=== PATIENT | female | born 1990 | race Caucasian/White ===

== ENCOUNTER 2020-03-07 19:34 | Emergency (ER) | payer MEDICAID, SELFPAY ==
[2020-03-07 19:36] VITALS: BP 108/66; PULSE 72; RESP 18; TEMP 36.7; O2SAT 100; BMI 23.3
--- NOTE | 2020-03-07 20:13 | ED.DENTAL ---
HPI - Dental/Oral General Chief complaint: Dental/Oral Stated complaint: DENTAL PAIN Time Seen by Provider: 03/07/20 20:09 History of Present Illness HPI Narrative: patient complains of pain in right lower molar for 3 days after a filling fell out and pain in all left lower molar for 1-2 weeks that has been slowly worsening, she denies any difficulty breathing or swallowing no fever She tried to make appointment with the dentist but could not get a reasonable appointment Related Data Previous Rx's Medication Instructions Recorded amoxicillin 500 mg PO TID 7 Days #21 cap 03/07/20 amoxicillin 500 mg PO TID 7 Days #21 cap 03/07/20 ibuprofen 600 mg PO Q6H PRN #20 tab 03/07/20 ibuprofen 600 mg PO Q6H PRN #20 tab 03/07/20 oxycodone-acetaminophen [Percocet] 1 - 2 tab PO Q4-6H PRN #14 tab 03/07/20 oxycodone-acetaminophen [Percocet] 1 - 2 tab PO Q4-6H PRN #14 tab 03/07/20 Allergies Allergy/AdvReac Type Severity Reaction Status Date / Time No Known Allergies Allergy Unverified 02/14/20 16:06 [No Known Allergies*] Review of Systems Review of Systems: no fever no chills no cough no chest pain no shortness of breath no difficulty swallowing no rash PMF Past Medical History [facility] Narrative: no relevant medical or social history Source: nursing notes reviewed Social History Social History Smoking Status: Unknown if ever smoked Use of substances other than those prescribed or required for medical reasons: No Advance Directives: No Advance Directives Information Provided: Yes Physical Exam Vital Signs and I&O and Narrative: Vital Signs and I&O: Vital Signs Temp 98.0 F 03/07/20 19:36 Pulse 72 03/07/20 19:36 Resp 18 03/07/20 19:36 BP 108/66 03/07/20 19:36 Pulse Ox 100 03/07/20 19:36 Intake & Output 03/07/20 03/07/20 03/08/20 06:59 18:59 06:59 Weight 65.771 kg Body Mass Index 23.3 general appearance A&O x3, no acute distress Facial exam the skin of the face is normal, there is no swelling there is full range of motion of the mandible Intraoral exam, no trismus, no drooling, there is tenderness and obvious dental decay of right side and left side molars there are 2 decayed teeth, there is no impairment of breathing or swallowing there is no swelling under the tongue, there is no gum swelling no gum obsess The pharynx is clear The neck is supple Respiratory no respiratory distress Extremities for range of motion x4 Skin no rashes Neuro A&O x3 Discharge Plan Discharge Clinical Impression: Dental caries Patient Disposition: Home, Self-Care Additional Instructions: follow with dentist Return any concerns Prescriptions: New amoxicillin 500 mg capsule 500 mg PO TID 7 Days Qty: 21 RF: 0 ibuprofen 600 mg tablet 600 mg PO Q6H PRN (Reason: pain) Qty: 20 RF: 0 oxycodone-acetaminophen [Percocet] 5-325 mg tablet 1 - 2 tab PO Q4-6H PRN (Reason: pain) Qty: 14 RF: 0 amoxicillin 500 mg capsule 500 mg PO TID 7 Days Qty: 21 RF: 0 ibuprofen 600 mg tablet 600 mg PO Q6H PRN (Reason: pain) Qty: 20 RF: 0 oxycodone-acetaminophen [Percocet] 5-325 mg tablet 1 - 2 tab PO Q4-6H PRN (Reason: pain) Qty: 14 RF: 0 Interventions: ED Discharge Assessment Last Done: 03/07/20 20:49 Discharge Date/Time: 03/07/20 20:40
== END 2020-03-07 20:40 | disposition home or self-care (01) ==
PROVIDERS: Emergency Provider Emergency Medicine
DX: K02.9 Dental caries, unspecified (principal); K08.89 Other specified disorders of teeth and supporting structures
CPT/HCPCS: 99283

== ENCOUNTER 2021-02-26 09:24 | Emergency (ER) | payer MEDICAID, SELFPAY ==
--- NOTE | ~2021-02-26 | CT_ITS ---
EXAMINATION: CT ABDOMEN AND PELVIS WITHOUT CONTRAST CLINICAL INFORMATION: Left flank pain. Rule out kidney stone. COMPARISON: Previous CT of the abdomen and pelvis December 2019 TECHNIQUE: Multidetector volumetric imaging was performed from the superior aspect of the liver through the pubic symphysis. Sagittal and coronal reformatted images were obtained on the technologist's workstation. This CT examination was performed using dose optimization techniques as appropriate, variously including the following: *Automated exposure control *Adjustment of mA and/or kV according to patient size (this includes techniques or standardized protocols for targeted exams where dose is matched to indication/reason for exam; i.e. extremities or head) *Use of iterative reconstruction technique DLP: 470 mGy-cm FINDINGS: LUNG BASES: The visualized lung bases are unremarkable. LIVER, GALLBLADDER, AND BILIARY TREE: The liver is normal in size, shape, and attenuation. No focal hepatic lesion or biliary ductal dilatation is present. The gallbladder is unremarkable with no evidence of radiopaque gallstones, gallbladder wall thickening, or obvious pericholecystic inflammatory changes. PANCREAS: Unremarkable. SPLEEN: Unremarkable. ADRENAL GLANDS: Unremarkable. KIDNEYS AND URETERS: The kidneys are normal in size, shape, and attenuation. No hydronephrosis, hydroureter, or calculi seen. No perinephric stranding. BLADDER: Unremarkable. GASTROINTESTINAL TRACT: The small and large bowel are unremarkable. The appendix is unremarkable. ABDOMINAL WALL: There is a small umbilical hernia containing fat. LYMPH NODES: Normal. VASCULAR: Unremarkable. PELVIC VISCERA: Unremarkable. OSSEOUS STRUCTURES: Unremarkable. CT/CT abdomen pelvis wo con IMPRESSION: Unremarkable exam. No stone seen.
[2021-02-26 09:54] VITALS: BP 103/53; PULSE 117; RESP 14; TEMP 36.8; O2SAT 100; BMI 24.0
[2021-02-26 10:53] LABS: UPreg QC Valid YES; Urine Pregnancy NEGATIVE (NEGATIVE)
--- NOTE | 2021-02-26 11:00 | ED_ITS ---
HPI - Abdominal Pain General Chief Complaint: Abdominal Pain Stated Complaint: abd pain, urinary problem Time Seen by Provider: 02/26/21 10:36 Source: patient Mode of arrival: ambulatory Limitations: no limitations History of Present Illness HPI narrative: 23-year-old female who presents emergency department for chiki luation of back abdominal pain x2 days. Patient states that the back pain started yesterday, she points to her left upper back in flank area when asked to localize the pain. She states the pain is a constant sharp pain which is 10/10. The pain came on gradually and got progressively worse. She has had associated nausea with small amounts of emesis, she has noted dysuria and urinary frequency. She states that she had a subjective fever yesterday as well as chills. Patient states she had similar discomfort in the past when she had a urinary tract infection. She denied chest pain, shortness of breath, dyspnea on exertion, change in bowel movements. Related Data Previous Rx's Medication Instructions Recorded amoxicillin 500 mg capsule 500 mg PO TID 7 Days #21 cap 03/07/20 amoxicillin 500 mg capsule 500 mg PO TID 7 Days #21 cap 03/07/20 ibuprofen 600 mg tablet 600 mg PO Q6H PRN #20 tab 03/07/20 ibuprofen 600 mg tablet 600 mg PO Q6H PRN #20 tab 03/07/20 oxycodone-acetaminophen 5 mg-325 1 - 2 tab PO Q4-6H PRN #14 tab 03/07/20 mg tablet (Percocet) oxycodone-acetaminophen 5 mg-325 1 - 2 tab PO Q4-6H PRN #14 tab 03/07/20 mg tablet (Percocet) cephalexin 500 mg capsule 500 mg PO TID 7 Days #21 cap 02/26/21 phenazopyridine 200 mg tablet 200 mg PO TID PRN 3 Days #9 tab 02/26/21 (Pyridium) Allergies Allergy/AdvReac Type Severity Reaction Status Date / Time No Known Allergies Allergy Unverified 02/14/20 16:06 [No Known Allergies*] Review of Systems Review of Systems Past medical history: None. Past surgical history: Herniorrhaphy at age 18. Yes all other systems are reviewed and are negative Physical Exam Vital Signs: Vital Signs: Last Vital Signs Temp 99.8 F 02/26/21 12:34 Pulse 113 H 02/26/21 12:34 Resp 16 02/26/21 12:34 BP 108/59 L 02/26/21 12:34 Pulse Ox 97 02/26/21 12:34 Body Mass Index 24.0 Const: Other: Pleasant, cooperative female patient who appears to be in moderate distress secondary to her pain, she is actively vomiting at the time of my interview. HENMT: Head: Yes normal to inspection, Yes normocephalic and Yes atraumatic Ears: external ears normal General nose exam: Normal external nose present Face and sinus: Yes normal facial exam Mouth: Normal oral and palatal mucosa present Throat: Yes posterior oropharynx normal Eyes: General: appearance normal, both eyes and all related structures Pupils: Equal, round and reactive pupils present Neck: Neck: Yes normal visual inspection, Yes no lymphadenopathy, Yes trachea midline and Yes supple Chest: Chest palpation & inspection: normal inspection of the chest and normal palpation of entire chest wall Resp: Effort & Inspection: normal respiratory effort and able to speak in complete sentences Auscultation: clear to auscultation bilaterally Cardio: Rate: regular rate Rhythm: regular rhythm Heart sounds: S1 normal heart sound present, S2 normal heart sound present and no murmurs GI: Inspection: Yes normal to inspection Palpation (GI): Soft to palpation, Tenderness to palpation present (GI) in the LUQ (Moderate) and no guarding Auscultation: normal bowel sounds : General: Yes CVA tenderness on the left Back/Spine/Pelvis: Back: CVA tenderness Skin: General skin exam: no rashes or lesions noted Neuro: Cranial nerves: Yes CN's II-XII intact bilaterally and Yes Equal, round and reactive pupils present Cognition (Neuro): normal cognition Motor exam (neuro): 5/5 motor strength present throughout Extrem: General: Yes normal to inspection Psych: Appearance: grossly normal Speech and movement: Normal speech and movement present Affect: normal affect Attitude: cooperative Thought process: Normal thought process present Thought content: Normal thought content present Course Course Course Narrative: 31-year-old female who presents emergency department for evaluation of left posterior chest and flank pain x2 days with subjective fever, chills frequency and dysuria. Patient's vital signs revealed tachycardia with a pulse of 117. The patient's exam did reveal left flank tenderness and left lower quadrant tenderness. Differential includes but is not limited to urinary tract infection, pyelonephritis, renal colic. I did order a CBC, CMP, urinalysis and urine . CT scan of the abdomen pelvis with IV contrast was also ordered. Patient's pain will be treated with Toradol 30 mg IV and her nausea will be treated with Zofran 4 mg IV. 1333: Patient did get relief of her pain with Toradol however the pain returned and she required morphine 4 mg IV. laboratory evaluation [place] [address], elevated glucose of 122. Urinalysis was positive for blood. Microscopic revealed 0-2 rbc's, 5 -9 WBCs 2 +squamous cells and 2+ bacteria. CT scan of the abdomen pelvis revealed no acute findings to explain the patient's left flank pain. Given the patient's presentation I am concerned that she may have a urinary tract infection as the cause of her symptoms. I did discuss this with the patient. Patient was given Keflex 500 mg orally and P yridium 200 mg orally. Patient was discharged home. MDM - Abdominal Pain Lab Data Result diagrams: 02/26/21 11:07 02/26/21 11:07 Labs: Lab Results 02/26/21 02/26/21 02/26/21 Range/Units 10:25 10:25 11:07 WBC 16.5 H (4.8-10.8) X10*3/uL RBC 4.25 (4.20-5.50) X10*6/uL Hgb 12.9 (12.0-16.0) g/dl Hct 38.2 (37-47) % MCV 89.9 (80-98) fL MCH 30.4 (27.0-33.0) pg MCHC 33.8 (31.0-35.0) g/dl RDW 12.1 (11.0-16.0) % Plt Count 207 (160-400) X10*3/uL MPV 10.1 (9.4-12.3) fL Immature Gran % (Auto) 0.5 H (0.0-0.4) % Neut % (Auto) 87.7 H (45-73) % Lymph % (Auto) 7.0 L (20-40) % [place] % (Auto) 4.7 (2-11) % Eos % (Auto) 0.0 (0-4) % Baso % (Auto) 0.1 (0-2) % Lymph # (Auto) 1.2 (1.2-4.9) X10*3/uL [place] # (Auto) 0.8 (0.1-1.2) X10*3/uL Eos # (Auto) 0.0 (0.0-0.4) X10*3/uL Baso # (Auto) 0.0 (0.0-0.2) X10*3/uL Abs Immat Gran (auto) 0.08 H (0.00-0.03) X10*3/uL Absolute Neuts (auto) 14.5 H (2.0-8.3) X10*3/uL Absolute Nucleated RBC 0.000 (0.0-0.012) X10*3/uL Nucleated RBC % (auto) 0.0 (0.0-0.2) /100WBC Sodium (135-145) mmol/L Potassium (3.3-5.1) mmol/L Chloride (96-108) mmol/L Carbon Dioxide (22-29) mmol/L Anion Gap (12-20) BUN (9-16) mg/dL Creatinine (0.5-1.4) mg/dL Estim Creat Clear Calc Estimated GFR Random Glucose (60-115) mg/dL Calcium (8.4-10.2) mg/dL Total Bilirubin (0.0-1.0) mg/dL AST (5-31) U/L ALT (0-31) U/L Alkaline Phosphatase (39-117) U/L Total Protein (6.5-8.0) g/dL Albumin (3.5-5.0) g/dL Lipase (8-78) U/L Urine Color YELLOW Urine Appearance HAZY Urine pH 6.0 (5.0-8.0) Ur Specific [place] 1.020 (1.005-1.025) Urine Protein TRACE (NEG-TRACE) MG/DL Urine Glucose (UA) NEG (NEG) MG/DL Urine Ketones 15 (NEG) MG/DL Urine Blood 3+ H (NEG) Urine Nitrite NEG (NEG) Ur Leukocyte Esterase NEG (NEG) Urine RBC 0-2 (0) /HPF Urine WBC 5-9 H (0-4) /HPF Ur Squamous Epith Cells 2+ /LPF Urine Bacteria 2+ /LPF Urine Mucus 1+ /LPF Urine Test NEGATIVE (NEGATIVE) 02/26/21 Range/Units 11:07 WBC (4.8-10.8) X10*3/uL RBC (4.20-5.50) X10*6/uL Hgb (12.0-16.0) g/dl Hct (37-47) % MCV (80-98) fL MCH (27.0-33.0) pg MCHC (31.0-35.0) g/dl RDW (11.0-16.0) % Plt Count (160-400) X10*3/uL MPV (9.4-12.3) fL Immature Gran % (Auto) (0.0-0.4) % Neut % (Auto) (45-73) % Lymph % (Auto) (20-40) % [place] % (Auto) (2-11) % Eos % (Auto) (0-4) % Baso % (Auto) (0-2) % Lymph # (Auto) (1.2-4.9) X10*3/uL [place] # (Auto) (0.1-1.2) X10*3/uL Eos # (Auto) (0.0-0.4) X10*3/uL Baso # (Auto) (0.0-0.2) X10*3/uL Abs Immat Gran (auto) (0.00-0.03) X10*3/uL Absolute Neuts (auto) (2.0-8.3) X10*3/uL Absolute Nucleated RBC (0.0-0.012) X10*3/uL Nucleated RBC % (auto) (0.0-0.2) /100WBC Sodium 138 (135-145) mmol/L Potassium 4.0 (3.3-5.1) mmol/L Chloride 106 (96-108) mmol/L Carbon Dioxide 22 (22-29) mmol/L Anion Gap 14 (12-20) BUN 8 L (9-16) mg/dL Creatinine 0.91 (0.5-1.4) mg/dL Estim Creat Clear Calc 85.3 Estimated GFR > 60 Random Glucose 122 H (60-115) mg/dL Calcium 9.2 (8.4-10.2) mg/dL Total Bilirubin 1.5 H (0.0-1.0) mg/dL AST 16 (5-31) U/L ALT 14 (0-31) U/L Alkaline Phosphatase 55 (39-117) U/L Total Protein 7.6 (6.5-8.0) g/dL Albumin 4.5 (3.5-5.0) g/dL Lipase 12 (8-78) U/L Urine Color Urine Appearance Urine pH (5.0-8.0) Ur Specific [place] (1.005-1.025) Urine Protein (NEG-TRACE) MG/DL Urine Glucose (UA) (NEG) MG/DL Urine Ketones (NEG) MG/DL Urine Blood (NEG) Urine Nitrite (NEG) Ur Leukocyte Esterase (NEG) Urine RBC (0) /HPF Urine WBC (0-4) /HPF Ur Squamous Epith Cells /LPF Urine Bacteria /LPF Urine Mucus /LPF Urine Test (NEGATIVE) Discharge Plan Discharge Clinical Impression: Acute left flank pain Urinary tract infection Qualifiers: Urinary tract infection type: site unspecified Hematuria presence: without hematuria Qualified Code(s): N39.0 - Urinary tract infection, site not specified Patient Disposition: Home, Self-Care Instructions: Urinary Tract Infection in Women (ED) Additional Instructions: Your blood work revealed an elevated white blood cell count, this is consistent with an infection. Your urine microscopic examination did reveal a few white blood cells and b acteria, The CT scan of your abdomen pelvis without IV contrast did not reveal a clear cause for her left flank pain. At this time, I want to treat you for possible urinary tract infection as the cause of your symptoms. He received Keflex 500 mg orally here in the emergency department. Take Keflex 500 mg 3 times a day for 7 days. For pain take Pyridium 200 mg pills, 1 pill 3 times a day as needed. Take ibuprofen 200 mg pills, 3 pills every 6 hours as needed for pain. Take Tylenol (acetaminophen) 500 mg pills, 2 pills every 4 to 6 hours as needed for pain. Follow-up with your doctor in 2 days. Please return to the emergency department if your symptoms get worse or if you develop any symptoms that are concerning to you. Prescriptions: New phenazopyridine [Pyridium] 200 mg tablet 200 mg PO TID PRN (Reason: Burning with urination) 3 Days Qty: 9 RF: 0 cephalexin 500 mg capsule 500 mg PO TID 7 Days Qty: 21 RF: 0 No Action amoxicillin 500 mg capsule 500 mg PO TID 7 Days Qty: 21 RF: 0 ibuprofen 600 mg tablet 600 mg PO Q6H PRN (Reason: pain) Qty: 20 RF: 0 oxycodone-acetaminophen [Percocet] 5-325 mg tablet 1 - 2 tab PO Q4-6H PRN (Reason: pain) Qty: 14 RF: 0 amoxicillin 500 mg capsule 500 mg PO TID 7 Days Qty: 21 RF: 0 ibuprofen 600 mg tablet 600 mg PO Q6H PRN (Reason: pain) Qty: 20 RF: 0 oxycodone-acetaminophen [Percocet] 5-325 mg tablet 1 - 2 tab PO Q4-6H PRN (Reason: pain) Qty: 14 RF: 0 PMFSH Social History Social History Patient Tobacco Use Status: Never used Tobacco Use of substances other than those prescribed or required for medical reasons: No Advance Directives: No
[2021-02-26 11:10] LABS: MANUAL DIFF FLAG NO
[2021-02-26 11:14] LABS: Basophils Percent Auto 0.1 % (0-2); Hematocrit 38.2 % (37-47); Hemoglobin 12.9 g/dl (12.0-16.0); Imm Gran Abs Auto 0.08 X10*3/uL (0.00-0.03); Imm Gran Pct Auto 0.5 % (0.0-0.4); Lymphocytes Absolute Auto 1.2 X10*3/uL (1.2-4.9); Mean Corpuscular HGB Conc 33.8 g/dl (31.0-35.0); Mean Corpuscular Hemoglobin 30.4 pg (27.0-33.0); Mean Corpuscular Volume 89.9 fL (80-98); Mean Platelet Volume 10.1 fL (9.4-12.3); Monocytes Absolute Auto 0.8 X10*3/uL (0.1-1.2); Monocytes Percent Auto 4.7 % (2-11); Neutrophils Absolute Auto 14.5 X10*3/uL (2.0-8.3); Neutrophils Percent Auto 87.7 % (45-73); Platelet Count 207 X10*3/uL (160-400); Red Blood Count 4.25 X10*6/uL (4.20-5.50); Red Cell Distribution Width 12.1 % (11.0-16.0); White Blood Count 16.5 X10*3/uL (4.8-10.8)
[2021-02-26] MEDS: Ketorolac Tromethamine 15 MG/ML VIAL 30 MG IVPUSH (11:20)
[2021-02-26] MEDS: 0.9 % Sodium Chloride 1,000 ML 999 ML IV (11:20)
[2021-02-26] MEDS: ondansetron HCL 4 MG/2 ML VIAL IVPUSH (11:20)
[2021-02-26 11:21] VITALS: TEMP 37.6
[2021-02-26 11:23] LABS: Appearance Urine HAZY; Color Urine YELLOW; Glucose Urine UA NEG (NEG); Leukocyte Esterase Urine NEG (NEG); Nitrite Urine NEG (NEG); UACC Culture Trigger NO; Urine Blood 3+ (NEG); Urine Ketones 15 MG/DL (NEG); Urine Protein TRACE MG/DL (NEG-TRACE)
[2021-02-26 11:31] LABS: Alanine Aminotransferase 14 U/L (0-31); Albumin Level 4.5 g/dL (3.5-5.0); Alkaline Phosphatase 55 U/L (39-117); Anion Gap 14 (12-20); Aspartate Amino Transferase 16 U/L (5-31); Bilirubin Total 1.5 mg/dL (0.0-1.0); Blood Urea Nitrogen 8 mg/dL (9-16); Calcium 9.2 mg/dL (8.4-10.2); Carbon Dioxide 22 mmol/L (22-29); Chloride 106 mmol/L (96-108); Creatinine Clr Calc Pharmacy 85.3; Estimated Glomerular Filt Rate > 60; Glucose Random 122 mg/dL (60-115); Lipase 12 U/L (8-78); Sodium 138 mmol/L (135-145); Total Protein 7.6 g/dL (6.5-8.0)
[2021-02-26 11:45] LABS: Bacteria Urine 2+ /LPF; RBC Urine 0-2 /HPF (0); Squamous Epithelial Cell Urine 2+ /LPF
[2021-02-26 11:46] LABS: Mucus Urine 1+ /LPF
[2021-02-26 11:51] VITALS: BP 112/57; PULSE 112; RESP 16; O2SAT 99
--- NOTE | 2021-02-26 11:58 | PC.NURSE ---
Pt reports low back pain and low abd pain and left rib pain since yesterday. States decreased pain level s/p pain meds given but pain persist at 12/06. Requested and given heat pack to low back and Dr Sandoval aware of pain level at this time
[2021-02-26] MEDS: Morphine Sulfate 4 MG/ML CARTRIDGE IVPUSH (12:08)
[2021-02-26 12:34] VITALS: BP 108/59; PULSE 113; RESP 16; TEMP 37.7; O2SAT 97
[2021-02-26] MEDS: cephALEXin 500 MG CAPSULE PO (14:00)
[2021-02-26] MEDS: Phenazopyridine HCL 200 MG TABLET PO (14:00)
== END 2021-02-26 14:05 | disposition home or self-care (01) ==
PROVIDERS: Emergency Provider Emergency Medicine Emergency Medical Services
DX: N39.0 Urinary tract infection, site not specified (principal); R10.9 Unspecified abdominal pain; M54.5 Low back pain; Z79.899 Other long term (current) drug therapy
CPT/HCPCS: 36415; 74176; 80053; 81001; 81025; 83690; 85025; 96361; 96374; 96375; 99284; J1885; J2270; J2405

== ENCOUNTER 2022-12-22 13:03 | Emergency (ER) | payer MEDICAID, SELFPAY ==
[2022-12-22 14:01] VITALS: BP 102/54; PULSE 62; RESP 16; TEMP 36.1; O2SAT 99; BMI 25.8
--- NOTE | 2022-12-22 14:08 | ED_ITS ---
HPI - Medical Clearance General Chief complaint: Medical Clearance Stated complaint: Wants to be checked b/c her son has a rash Time Seen by Provider: 12/22/22 13:57 Source: patient Mode of arrival: ambulatory Limitations: no limitations History of Present Illness HPI Narrative: 32 yo female presents to the ER for evaluation of a slightly painful cracked lesion on her lower lip that she noticed yesterday. She wanted evaluation for possible HSV because her 4 yo son was told at the multimedia engineer yesterday that his mouth sores were herpes. She denies any painful oral or lip lesions, blisters or bumps. complaint: other (cracked area on lower lip) Onset (ago): day(s) (1) Place: home Traumatic Symptoms: denies traumatic injury Associated Symptoms: denies other symptoms Treatments Prior to Arrival: none Related Information Previous Rx's Medication Instructions Recorded amoxicillin 500 mg capsule 500 mg PO TID 7 days #21 caps 03/07/20 amoxicillin 500 mg capsule 500 mg PO TID 7 days #21 caps 03/07/20 ibuprofen 600 mg tablet 600 mg PO Q6H PRN pain #20 tabs 03/07/20 ibuprofen 600 mg tablet 600 mg PO Q6H PRN pain #20 tabs 03/07/20 oxycodone-acetaminophen 5 mg-325 1 - 2 tab PO Q4-6H PRN pain #14 03/07/20 mg tablet (Percocet) tabs oxycodone-acetaminophen 5 mg-325 1 - 2 tab PO Q4-6H PRN pain #14 03/07/20 mg tablet (Percocet) tabs cephalexin 500 mg capsule 500 mg PO TID 7 days #21 caps 02/26/21 phenazopyridine 200 mg tablet 200 mg PO TID PRN Burning with 02/26/21 (Pyridium) urination 3 days #9 tabs Allergies Allergy/AdvReac Type Severity Reaction Status Date / Time No Known Allergies Allergy Unverified 12/22/22 14:04 [No Known Allergies*] Review of Systems Review of Systems: Yes all other systems are reviewed and are negative [facility] Social History Social History Patient Tobacco Use Status: Never used Tobacco Advance Directives: No Advance Directives Information Provided: No Physical Exam Vital Signs: Vital Signs: Last Vital Signs Temp 96.9 F 12/22/22 14:01 Pulse 62 12/22/22 14:01 Resp 16 12/22/22 14:01 BP 102/54 L 12/22/22 14:01 Pulse Ox 99 12/22/22 14:01 O2 Del Method Room Air 12/22/22 14:01 BMI result Body Mass Index 25.8 Appearance: Alert. Oriented X3. No acute distress. Head: normocephalic, atraumatic. Eyes: normal inspection ENT: Lips are normal to inspection, there is a small, <0.5cm linear crack in the right lower lip, no bleeding, no raised lesion or blister. Pharynx normal. No tonsillar swelling or exudate. Neck: Normal inspection. Neck supple. CVS: Normal heart rate and rhythm. Pulses normal. Respiratory: No respiratory distress. Breath sounds normal. Skin: Skin warm and dry. Normal skin color. Normal skin turgor. No rashes. Extremities: No lower extremity edema. No joint swelling. Neuro/psych: Oriented X 3. nonfocal. CN II-XII intact. Normal speech and cognition. Medical Decision Making Medical Decision Making MDM Narrative: 32 yo female presenting for evaluation of a lip lesion after her son was diagnosed with oral herpes. her lip lesion is a simple crack without blistering or vesicles. exam not c/w HSV. patient counseled. she is stable for d/c home. Differential Diagnosis Differential Diagnoses: The differential diagnosis associated with the presentation includes cheilosis, HSV, stomatitis, apthous ulcer Tests considered The following testing was considered but not selected: considered HSV swab Prescription Management I considered prescription management with: Antiviral Critical Care Time Critical Care Time Critical Care Time: No Discharge Plan Discharge Clinical Impression: Cheilosis Patient Disposition: Home, Self-Care Additional Instructions: Cheilosis, also known as angular cheilitis or megan?kwaku, is?an inflammatory condition that causes cracking, crusting, and scaling of the corners of the mouth It gets better on its own Use topical chapstick to the area Prescriptions: No Action amoxicillin 500 mg capsule 500 mg PO TID 7 Days Qty: 21 0RF ibuprofen 600 mg tablet 600 mg PO Q6H PRN (Reason: pain) Qty: 20 0RF oxycodone-acetaminophen [Percocet] 5-325 mg tablet 1 - 2 tab PO Q4-6H PRN (Reason: pain) Qty: 14 0RF Rx Instructions: this medication can cause drowsiness, no driving for 6 hours after taking amoxicillin 500 mg capsule 500 mg PO TID 7 Days Qty: 21 0RF ibuprofen 600 mg tablet 600 mg PO Q6H PRN (Reason: pain) Qty: 20 0RF oxycodone-acetaminophen [Percocet] 5-325 mg tablet 1 - 2 tab PO Q4-6H PRN (Reason: pain) Qty: 14 0RF Rx Instructions: narcotic common no driving for 6 hours after taking this medication phenazopyridine [Pyridium] 200 mg tablet 200 mg PO TID PRN (Reason: Burning with urination) 3 Days Qty: 9 0RF cephalexin 500 mg capsule 500 mg PO TID 7 Days Qty: 21 0RF Interventions: ED Discharge Assessment Last Done: 12/22/22 14:24 Discharge Date/Time: 12/22/22 14:24
== END 2022-12-22 14:24 | disposition home or self-care (01) ==
PROVIDERS: Emergency Provider Emergency Medicine
DX: K13.0 Diseases of lips (principal)
CPT/HCPCS: 99282

== ENCOUNTER 2023-12-08 14:55 | Outpatient (REF) | payer MEDICAID, SELFPAY ==
--- NOTE | ~2023-12-08 | US_ITS ---
EXAMINATION: US SOFT TISSUE HEAD/NECK CLINICAL INFORMATION: Patient with chronic mass sensation in her right side of neck. COMPARISON: None available. TECHNIQUE: Linear transducer grayscale and color Doppler examination of the right neck. FINDINGS: Targeted ultrasound images were obtained by the claim adjuster of the area of concern as indicated by the patient in the right neck and demonstrated no discrete mass or fluid collection. Incidental note is made of lymph nodes superior and inferior to this area of concern indicated by the patient in the right neck. The lymph nodes inferior to the area of interest in the right neck measure 1.6 x 0.4 x 1.1 cm and 1.4 x 0.4 x 1.2 cm. The lymph node superior to the area of concern indicated by the patient measures 1.6 x 0.4 x 1.1 cm. These lymph nodes appear atypical with borderline cortical thickening. Radiologist was not in attendance. Images were later provided for interpretation. US/US soft tiss head and/or neck IMPRESSION: 1. No discrete mass or fluid collection identified in the area of concern indicated by the patient in the right neck. 2. Incidental note is made of lymph nodes superior and inferior to this area of concern indicated by the patient in the right neck. The lymph nodes inferior to the area of interest in the right neck measure 1.6 x 0.4 x 1.1 cm and 1.4 x 0.4 x 1.2 cm. The lymph node superior to the area of concern indicated by the patient measures 1.6 x 0.4 x 1.1 cm. These lymph nodes appear atypical with borderline cortical thickening. 3. Additional imaging with CT scan with intravenous contrast could be considered for further evaluation based on the clinical assessment.
== END 2023-12-08 14:56 | disposition home or self-care (01) ==
LOC: HO.US 14:55
PROVIDERS: PCP Student in an Organized Health Care Education/Training Program; Visit Provider Student in an Organized Health Care Education/Training Program
DX: R22.1 Localized swelling, mass and lump, neck (principal)
CPT/HCPCS: 76536

== ENCOUNTER 2024-04-10 16:03 | Outpatient (REF) | payer MEDICAID, SELFPAY ==
[2024-04-10] MEDS: iohexoL 350 MG/ML 100 ML INFUS..BTL IV (16:55)
== END 2024-04-10 16:04 | disposition home or self-care (01) ==
LOC: HO.CT 16:03
PROVIDERS: PCP Student in an Organized Health Care Education/Training Program; Visit Provider Student in an Organized Health Care Education/Training Program
DX: R22.1 Localized swelling, mass and lump, neck (principal)
CPT/HCPCS: 70491; Q9967

== ENCOUNTER → 2024-04-10 16:05 | Outpatient (BNV) | payer MEDICAID, SELFPAY | PROVIDERS: PCP Student in an Organized Health Care Education/Training Program; Visit Provider Radiology Diagnostic Radiology | DX: R22.1 Localized swelling, mass and lump, neck (principal) | CPT/HCPCS: 70491 ==

== ENCOUNTER 2024-05-15 | Outpatient (REF) | payer MEDICAID, SELFPAY ==
--- NOTE | ~2024-05-15 | XR_ITS ---
EXAMINATION: XR RIBS, BILATERAL CLINICAL INFORMATION: Bilateral rib pain x2 days. COMPARISON: 01/23/2017 TECHNIQUE: 3 views of the bilateral ribs and a PA view of the chest. FINDINGS: Lungs are clear. No consolidation, pneumothorax, or pleural effusion. The cardiomediastinal silhouette and pulmonary vasculature are normal. Osseous structures are unremarkable. Ribs are intact. No fractures are identified. XR/XR ribs BI min 4V w CXR1V IMPRESSION: Normal chest radiographs. No rib fractures are identified. Electronically signed by: Asaf Noel MD 05/19/2024 10:51 PM ROSITA DILLON
== END 2024-05-15 00:01 | disposition home or self-care (01) ==
LOC: HO.HHCX
PROVIDERS: Visit Provider Family Medicine
DX: R07.81 Pleurodynia (principal); R30.0 Dysuria
CPT/HCPCS: 71111; 87086; 87088; 87186

== ENCOUNTER 2025-01-25 23:08 | Emergency (ER) | payer OTHER, MEDICAID, SELFPAY ==
[2025-01-25 23:12] VITALS: BP 112/52; PULSE 78; RESP 16; TEMP 36.1; O2SAT 98; BMI 24.8
[2025-01-26] VITALS: BP 118/60; PULSE 82; RESP 18; O2SAT 97
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
--- OUTSIDE RECORDS SUMMARY | 2025-01-26 00:21 | XMS_ITS | Encounter Summary ---
Author Organization [employer] Address [address] [place] [id number] Care Team Providers Care Family Living Educator Name Role Phone Riana Hester DO Primary Care Provider [phone] Malinda Shankar MD Primary Care Pro vider Encounter Details Date Type Department Care Team (Latest Contact Info) Description 12/23/2020 Abstract [facility] Dental, Provider, DDS Social History Tobacco Use Types Packs/Day Years Used Date Smoking Tobacco: Never Assessed Comments Unknown Sex and Gender Information Value Date Recorded Sex Assigned at Female 03/29/2022 10:15 AM EDT Legal Sex Female 10:15 AM EDT Gender Identity Female 03/29/2022 10:15 AM EDT Sexual Orientation Straight 03/29/2022 10 :15 AM EDT documented as of this encounter Plan of Treatment Not on file documented as of this encounter Visit Diagnoses Not on filedocumented in this encounter Care Teams Family Living Educator Relationship Specialty Start Date End Date Riana Hester DO [address] [place] [address] PCP - General Family Medicine 12/07/21 10/06/22 Malinda Shankar MD [address] [place] [address] PCP - General Internal Medicine 10/07/22 Iman Clayton NUT STEAMER [address] [facility] 3rd Floor [address] [place] [id number] Gastroenterology 11/03/23 documented as of this encounter
--- OUTSIDE RECORDS SUMMARY | 2025-01-26 00:22 | XMS_ITS | Encounter Summary ---
Author Organization [employer] Address [address] [place] [address] [address] [place] [address] Care Team Providers Care Mat Man Name Role Phone Malinda Shankar MD Primary Care Pro vider Reason for Visit * Reason Onset Date Comments returning call for appt with Dr. Rowell 08/22/19 Encounter Details Date Type Department Care Team ([facility] Contact Info) Description 08/21/2024 Telephone [facility] ADULT D[facility]AL [address] [place] [address] Jarrod Rowell, DDS [address] [place] [address] returning call for appt with Dr. Rowell Social History Tobacco Use Types Packs/Day Years Used Date Smoking Tobacco: Never Passive Smoke Exposure: Never Smokeless Tobacco: Never Alcohol Use Standard Drinks/Week Comments Yes 0 (1 standard drink = 0.6 oz pur e alcohol) social Depression Answer Date Recorded Patient Health Questionnaire-9 Score 0 10/28/2023 Patient Health Questionnaire-9 Score 0 10/28/2023 Last PHQ-9: Questionnaire Data Not on file 0 10/28/2023 Housing Stability Answer Date Recorded What is your housing situation today? I have nydia aguilar 10/28/[address] you li ve. Do you have problems with any of the following? None of the above 10/28/2023 Food Insecurity Answer Date Recorded Within the past 12 months, y ou worried that your food would run out before you got money to buy more: Never True 10/28/2023 Within the past 12 months,th e food you bought just didn't last and you didn't have enough money to get more: Never True Transportation Answer Date Recorded In the past 12 months, has l ack of transportation kept you from medical appts, meetings, work or from getting things needed for daily living? No 10/28/2023 Utilities Answer Date Recorded In the past 12 months, has t he electric, gas, oil or water company threatened to shut off services in your home? No 10/28/2023 Depression Answer Date Recorded Patient Health Questionnaire-2 Score 0 10/28/2023 Internet Access Answer Date Recorded Internet Access Q1 Yes 02/06/2024 Internet Access Q2 Not on file 02/06/2024 Comments Unknown Sex and Gender Information Value Date Recorded Sex Assigned at Female 03/29/2022 10:15 AM EDT Legal Sex Female 10:15 AM EDT Gender Identity Female 03/29/2022 10:15 AM EDT Sexual Orientation Straight 03/29/2022 10 :15 AM EDT documented as of this encounter Miscellaneous Notes * Telephone Encounter - Hannah Pratt - 08/21/2024 12:59 PM EDT Patient is returning call placed to schedule an appt on Tuesday with Dr. Rowell. She is heading intoan appt right now and may be not able to answer when office returns call however she states she is available on Tuesday to come in. Office can leave appt date and time on voicemail if she does not answer. documented in this encounter Plan of Treatment Not on file documented as of this encounter Visit Diagnoses Not on filedocumented in this encounter Additional Health Concerns Assessment Noted Time PHQ-9 Depression Total Score: 0 10/28/19 24 1:42 PM EDT documented as of this encounter Care Teams Mat Man Relationship Specialty Start Date End Date Malinda Shankar MD [address] [place] [id number] PCP - General Internal Medicine 10/07/22 Iman Clayton STRATEGY EXECUTION CONSULTANT [address] [facility] 3rd Floor [address] [place] [address] Gastroenterology 11/03/23 documented as of this encounter
--- OUTSIDE RECORDS SUMMARY | 2025-01-26 00:22 | XMS_ITS | Encounter Summary ---
Author Organization [employer] Address [address] [place] [address] [address] [place] [address] Care Team Providers Care Bottom Pounder Cement Shoes Name Role Phone Malinda Shankar MD Primary Care Pro vider Encounter Details Date Type Department Care Team ([facility] st Contact Info) Description 11/22/2022 Abstract [facility] ADULT DENTAL [address] [place] [address] Dayday Loredo, ELAYNE [address] [place] [address] Social History Tobacco Use Types Packs/Day Years Used Date Smoking Tobacco: Never Passive Smoke Exposure: Never Smokeless Tobacco: Never Alcohol Use Standard Drinks/Week Comments Yes 0 (1 standard drink = 0.6 oz pur e alcohol) social Depression Answer Date Recorded Patient Health Questionnaire-9 Score 7 10/12/2022 Depression Answer Date Recorded Patient Health Questionnaire-2 Score 1 10/12/2022 Comments Unknown Sex and Gender Information Value Date Recorded Sex Assigned at Female 03/29/2022 10:15 AM EDT Legal Sex Female 10:15 AM EDT Gender Identity Female 03/29/2022 10:15 AM EDT Sexual Orientation Straight 03/29/2022 10 :15 AM EDT COVID-19 Exposure Response Date Recorded In the last 10 days, have kinza agrawal been in contact with someone who was confirmed or suspected to have Coronavirus/COVID-19? No / Unsure 11/19/2022 2:46 PM EDT documented as of this encounter Plan of Treatment Not on file documented as of this encounter Visit Diagnoses Not on filedocumented in this encounter Additional Health Concerns Assessment Noted Time PHQ-9 Depression Total Score: 7 10/13/19 23 4:26 PM EDT documented as of this encounter Care Teams Bottom Pounder Cement Shoes Relationship Specialty Start Date End Date Malinda Shankar MD [address] [place] [address] PCP - General Internal Medicine 10/07/22 Iman Clayton CASING IN LINE FEEDER [address] [facility] 3rd Floor [address] [place] [address] Gastroenterology 11/03/23 documented as of this encounter
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
[2025-01-26 00:51] VITALS: BP 118/60; PULSE 82; RESP 18; TEMP 36.6; O2SAT 97
== END 2025-01-26 00:35 | disposition home or self-care (01) ==
LOC: HO.ED 01-26 00:14
PROVIDERS: Emergency Provider Emergency Medicine; PCP Student in an Organized Health Care Education/Training Program
DX: S46.911A Strain of unspecified muscle, fascia and tendon at shoulder and upper arm level, right arm, initial encounter (principal); S39.012A Strain of muscle, fascia and tendon of lower back, initial encounter; V43.52XA Car driver injured in collision with other type car in traffic accident, initial encounter; Y93.9 Activity, unspecified; Y92.410 Unspecified street and highway as the place of occurrence of the external cause; Y99.8 Other external cause status
CPT/HCPCS: 96372; 99283; 99284; J1885